=== PATIENT | male | born 1945 | race Caucasian/White ===

== ENCOUNTER 2018-02-08 07:07 | Day surgery (SDC) | payer OTHER ==
[~2018-02-08] VITALS: Ht 170.2 cm; Wt 86.4 kg
[2018-02-08] MEDS ORDERED: MIDAZOLAM HCL 2 MG/2 ML VIAL IVP ONE (07:08)
[2018-02-08] MEDS ORDERED: RINGERS SOLUTION,LACTATED 500 ML IV ONE ×2 (07:13→09:00)
[2018-02-08] MEDS ORDERED: TROPICAMIDE 1% 2 ML OPHTHALMIC SOLUTION ONE (07:13)
[2018-02-08] MEDS ORDERED: MOXIFLOXACIN HCL 0.5% 3 ML OPHTHALMIC SOLUTION ONE (07:13)
[2018-02-08] MEDS ORDERED: DICLOFENAC SODIUM 0.1% 2.5 ML OPHTHALMIC SOLUTION ONE (07:13)
[2018-02-08] MEDS ORDERED: PHENYLEPHRINE HCL 2.5% 2 ML OPHTHALMIC SOLUTION ONE (07:13)
[2018-02-08] MEDS: PHENYLEPHRINE HCL 2.5% 2 ML OPHTHALMIC SOLUTION OD SCH ×2 (07:52→07:58)
[2018-02-08] MEDS: TROPICAMIDE 1% 2 ML OPHTHALMIC SOLUTION OD SCH ×2 (07:52→07:58)
[2018-02-08] MEDS ORDERED: DICLOFENAC SODIUM 0.1% 2.5 ML OPHTHALMIC SOLUTION OD ONE (09:00)
[2018-02-08] MEDS ORDERED: MOXIFLOXACIN HCL 0.5% 3 ML OPHTHALMIC SOLUTION OD ONE (09:00)
[2018-02-08] MEDS ORDERED: TETRACAINE HCL/PF 0.5% 4 ML OPHTHALMIC SOLUTION ONE (22:10)
[2018-02-08] MEDS ORDERED: POVIDONE-IODINE 10% 15 ML SOLUTION UD ONE (22:10)
[2018-02-08] MEDS ORDERED: DEXAMETHASONE SOD PHOS 4 MG/ML VIAL ONE (22:10)
[2018-02-08] MEDS ORDERED: HYALURONATE SOD/CHONDROITIN SOD 0.5 ML VIAL IO ONE (22:10)
[2018-02-08] MEDS ORDERED: HYALURONATE SODIUM 12 MG/ML 0.8 ML SYRINGE IO ONE (22:10)
[2018-02-08] MEDS ORDERED: LIDOCAINE HCL 1% 20 ML VIAL ONE (22:10)
== END 2018-02-08 11:05 | disposition home or self-care (01) ==
LOC: SDS 07:07
PROVIDERS: ATTEND Specialist
DX: H25.011 Cortical age-related cataract, right eye (principal); I10 Essential (primary) hypertension; G47.33 Obstructive sleep apnea (adult) (pediatric)
CPT/HCPCS: 65785; 93005; J1100; J2250; J3490; J7120

== ENCOUNTER 2018-04-12 07:36 | Day surgery (SDC) | payer OTHER ==
[~2018-04-12] VITALS: Ht 170.2 cm; Wt 88.6 kg
[~2018-04-12 07:36] MED LIST: DICLOFENAC SODIUM 0.1% 2.5 ML OPHTHALMIC SOLUTION ONE; MOXIFLOXACIN HCL 0.5% 3 ML OPHTHALMIC SOLUTION ONE; PHENYLEPHRINE HCL 2.5% 2 ML OPHTHALMIC SOLUTION ONE; RINGERS SOLUTION,LACTATED 500 ML IV ONE; TROPICAMIDE 1% 2 ML OPHTHALMIC SOLUTION ONE
[2018-04-12] MEDS ORDERED: HYALURONATE SODIUM 12 MG/ML 0.8 ML SYRINGE IO ONE (07:37)
[2018-04-12] MEDS ORDERED: HYALURONATE SOD/CHONDROITIN SOD 0.5 ML VIAL IO ONE (07:37)
[2018-04-12] MEDS ORDERED: MIDAZOLAM HCL 2 MG/2 ML VIAL IVP ONE (07:37)
[2018-04-12] MEDS ORDERED: LIDOCAINE/PF 1% 2 ML VIAL IM ONE (07:37)
[2018-04-12] MEDS ORDERED: TETRACAINE HCL VISCOUS 0.5% 0.6 ML OPHTHALMIC SOLUTION OS ONE (07:37)
[2018-04-12] MEDS ORDERED: DEXAMETHASONE SOD PHOS 4 MG/ML VIAL IVP ONE (07:37)
[2018-04-12] MEDS ORDERED: POVIDONE-IODINE 10% 15 ML SOLUTION UD TP ONE (07:37)
[2018-04-12] MEDS ORDERED: FentaNYL CITRATE-PF 100 MCG/2 ML VIAL IVP ONE (07:37)
[2018-04-12] MEDS ORDERED: MOXIFLOXACIN HCL 0.5% 3 ML OPHTHALMIC SOLUTION OS ONE (08:00)
[2018-04-12] MEDS ORDERED: RINGERS SOLUTION,LACTATED 500 ML IV ONE (08:00)
[2018-04-12] MEDS ORDERED: DICLOFENAC SODIUM 0.1% 2.5 ML OPHTHALMIC SOLUTION OS ONE (08:00)
[2018-04-12] MEDS: PHENYLEPHRINE HCL 2.5% 2 ML OPHTHALMIC SOLUTION OS SCH ×2 (08:22→08:28)
[2018-04-12] MEDS: TROPICAMIDE 1% 2 ML OPHTHALMIC SOLUTION OS SCH ×2 (08:22→08:28)
== END 2018-04-12 11:00 | disposition home or self-care (01) ==
LOC: SURGERY 07:36
PROVIDERS: ATTEND Specialist
DX: H25.012 Cortical age-related cataract, left eye (principal); R00.1 Bradycardia, unspecified; Z98.41 Cataract extraction status, right eye; Z87.891 Personal history of nicotine dependence
CPT/HCPCS: 65785; 66984; 93005; C1780; J1100; J2250; J3010; J3490 ×2; J7120

== ENCOUNTER 2019-02-20 11:19 | Day surgery (SDC) | payer OTHER ==
[~2019-02-20] VITALS: Ht 167.6 cm; Wt 84.1 kg
[~2019-02-20 11:19] MED LIST changes: +BUPIVACAINE HCL/PF 0.25% 30 ML VIAL ONE; +BUPIVACAINE HCL/PF 0.5% 30 ML VIAL ONE; +CeFAZolin 2 GM/DEXTROSE 50 ML IV ONE; -DICLOFENAC SODIUM 0.1% 2.5 ML OPHTHALMIC SOLUTION ONE; +LIDOCAINE 2%/EPI 1:200,000/PF 20 ML VIAL ONE; -MOXIFLOXACIN HCL 0.5% 3 ML OPHTHALMIC SOLUTION ONE; -PHENYLEPHRINE HCL 2.5% 2 ML OPHTHALMIC SOLUTION ONE; +RINGERS SOLUTION,LACTATED 1,000 ML IV ONE; -RINGERS SOLUTION,LACTATED 500 ML IV ONE; +SODIUM CHLORIDE 0.9% 1,000 ML IV ONE; +SODIUM CHLORIDE 0.9% IRRIG BAG 0 ML IRRIG ONE; -TROPICAMIDE 1% 2 ML OPHTHALMIC SOLUTION ONE
[2019-02-20] MEDS ORDERED: MORPHINE SULFATE 4 MG/ML SYRINGE IVP ONE (11:20)
[2019-02-20] MEDS ORDERED: PROPOFOL 1% 20 ML VIAL IVP ONE (11:20)
[2019-02-20] MEDS ORDERED: ONDANSETRON HCL 4 MG/2 ML VIAL IVP ONE (11:20)
[2019-02-20] MEDS ORDERED: SUCCINYLCHOLINE CHLORIDE 20 MG/ML 10 ML VIAL IVP ONE (11:20)
[2019-02-20] MEDS ORDERED: FentaNYL CITRATE-PF 100 MCG/2 ML VIAL IVP ONE (11:20)
[2019-02-20] MEDS ORDERED: ROCURONIUM BROMIDE 10 MG/ML 5 ML VIAL IVP ONE (11:20)
[2019-02-20] MEDS ORDERED: LIDOCAINE/PF 2% 5 ML VIAL IM ONE (11:20)
[2019-02-20] MEDS ORDERED: MIDAZOLAM HCL 2 MG/2 ML VIAL IVP ONE (11:20)
[2019-02-20] MEDS ORDERED: DEXAMETHASONE SOD PHOS 4 MG/ML VIAL IVP ONE (11:20)
[2019-02-20 12:08] LABS: BASOPHILS % (AUTO) 0.5 % (0.0-2.0); EOSINOPHILS % (AUTO) 4.9 % (1.0-6.0); HEMOGLOBIN 13.8 g/dL (13.5-17.5); LYMPHOCYTES # (AUTO) 1.8 K/uL (1.0-4.8); LYMPHOCYTES % (AUTO) 29.9 % (22.0-44.0); MEAN CORPUSCULAR HEMOGLOBIN 30.5 pg (26.0-34.0); MEAN CORPUSCULAR HGB CONC 33.8 G/dL (31.0-37.0); MEAN CORPUSCULAR VOLUME 90 fL (80-100); MONOCYTES # (AUTO) 0.5 K/uL (0.1-1.0); MONOCYTES % (AUTO) 7.7 % (2.0-9.0); NEUTROPHILS # (AUTO) 3.4 K/uL (1.8-7.7); PLATELET COUNT (AUTO) 83 K/uL (150-450); RED BLOOD CELL COUNT(AUTO) 4.54 MIL/uL (4.50-5.90); RED CELL DISTRIBUTION WIDTH 13.7 % (11.5-14.5)
[2019-02-20 12:23] LABS: ANION GAP 9 mmol/L (8-16); CALCIUM, TOTAL 8.5 mg/dL (8.8-10.5); CARBON DIOXIDE 24 mmol/L (22-29); CHLORIDE 104 mmol/L (98-107); CREATININE 0.72 mg/dL (0.60-1.30); GLUCOSE,RANDOM 84 mg/dL (70-110); POTASSIUM 3.9 mmol/L (3.5-5.1); SODIUM SERUM 137 mmol/L (136-145); UREA NITROGEN, BLOOD 16 mg/dL (7-18)
[2019-02-20 12:27] LABS: GLOMERULAR FILTR. RATE CALC > 60 mL/min (>60)
[2019-02-20] MEDS ORDERED: CeFAZolin 2 GM/DEXTROSE 50 ML IV ONE (13:00)
[2019-02-20] MEDS ORDERED: MetroNIDAZOLE 500 MG/NACL 100 ML IV ONE (13:00)
[2019-02-20] MEDS ORDERED: METHYLENE BLUE 0.5% 10 ML AMPULE IVP ONE (14:30)
[2019-02-20] MEDS ORDERED: IBUPROFEN 800 MG TABLET PO PRN (15:00)
[2019-02-20] MEDS ORDERED: ACETAMINOPHEN 500 MG TABLET PO PRN (15:00)
== END 2019-02-20 16:30 | disposition home or self-care (01) ==
LOC: SURGERY 11:19
PROVIDERS: ATTEND Surgery
DX: K40.90 Unilateral inguinal hernia, without obstruction or gangrene, not specified as recurrent (principal); N40.0 Benign prostatic hyperplasia without lower urinary tract symptoms; Z87.891 Personal history of nicotine dependence; Z72.89 Other problems related to lifestyle; Z79.899 Other long term (current) drug therapy; Z98.41 Cataract extraction status, right eye; Z98.42 Cataract extraction status, left eye; Z98.890 Other specified postprocedural states
CPT/HCPCS: 36415; 49650; 80048; 85025; 93005; C1781; J0330; J0690; J1100; J2250; J2270; J2405; J2704; J3010; J3490 ×3; J7030; J7120